=== PATIENT | male | born 1955 | race Hispanic/Latino ===

== ENCOUNTER 2019-11-18 08:52 | Day surgery (SDC) | payer OTHER ==
[2019-11-18 09:03] LABS: Urine Appearance CLEAR; Urine Bilirubin NEGATIVE (NEG); Urine Blood NEGATIVE (NEG); Urine Color YELLOW; Urine Glucose NEGATIVE (NEG); Urine Protein NEGATIVE (NEG); Urine Specific Gravity 1.015 (1.005-1.030); Urine Urobilinogen 0.2 mg/dL (0.2-1.0); Urine pH 5.5 (5.0-7.0)
[2019-11-18 09:07] LABS: Urine Microscopic Reflex NO UMIC
[2019-11-18 09:09] LABS: Basophils % 0.5 % (0-1.3); Hematocrit 45.6 % (39.6-49.0); Lymphocytes % 23.1 % (15.3-44.8); MPV 7.4 fL (7.6-11.3); RBC Red Blood Cell Count 5.45 M/uL (4.33-5.43)
[2019-11-18] MEDS ORDERED: NA CHLORIDE 0.9% 1,000 ML ONE (09:24)
[2019-11-18] MEDS ORDERED: CEFAZOLIN/SWI 1gm 1 GM/10 ML SYR ONE (09:25)
[2019-11-18 09:26] LABS: Potassium 4.4 mmol/L (3.5-5.1)
--- NOTE | 2019-11-18 09:31 | RAD REPORT ---
EXAM DESCRIPTION: RAD - Chest Pa And Lat (2 Views) - 11/18/2019 8:51 am CLINICAL HISTORY: preop Chest pain. COMPARISON: Chest Pa And Lat (2 Views) dated 02/23/2017; ABDOMEN 1 VIEW KUB dated 07/01/2015; ABDOMEN 1 VIEW KUB dated 06/01/2015; ABDOMEN 1 VIEW KUB dated 10/27/2014 FINDINGS: The lungs are mildly emphysematous but clear. The heart is normal in size. No displaced fr actures. Aortic atherosclerosis. IMPRESSION: Mild COPD.
[2019-11-18 09:36] LABS: Protime INR 0.98
[2019-11-18] MEDS ORDERED: propofoL 200 MG/20 ML VIAL IV ONE (10:34)
[2019-11-18] MEDS ORDERED: FENTANYL CITR 100 MCG/2 ML ONE ×2 (10:35→12:03)
[2019-11-18] MEDS ORDERED: LIDOCAINE 2% MPF 5 ML VIAL ONE (10:35)
[2019-11-18] MEDS ORDERED: MIDAZOLAM HCL 2 MG/2 ML INJ ONE (10:35)
[2019-11-18] MEDS ORDERED: ONDANSETRON 4 MG/2 ML VIAL ONE (10:37)
[2019-11-18] MEDS ORDERED: NA CHLORIDE 0.9% 100 ML IV ONE (11:10)
[2019-11-18] MEDS ORDERED: WATER FOR INJ,STERILE 10 ML ONE (11:32)
[2019-11-18] MEDS: LIDOCAINE 1% MPF 30 ML VIAL ONE ×2 (12:14→12:25)
[2019-11-18 13:08] VITALS: O2SAT 96
[2019-11-18 13:35] VITALS: BP 160/71; TEMP 97.3
[2019-11-18] MEDS ORDERED: CODEINE 30MG/APAP 300MG TAB ONE (13:56)
--- NOTE | 2019-11-18 15:55 | EKG ---
Test Date: 2019-11-18 Test Time: 08:26:34 [employer]: RAKEL MEASUREMENT RESULTS: Intervals: Rate: 67 CT: 198 QRSD: 84 QT: 420 QTc: 443 [place]: P: 31 CT: 198 QRS: -21 T: 18 INTERPRETIVE STATEMENTS: Normal sinus rhythm Minimal voltage criteria for LVH, may be normal variant Borderline ECG Compared to ECG 05/27/2015 16:11:20 Left ventricular hypertrophy now present Electronically Signed On 11-18-19 15:51:50 SET OFF PRESS OPERATOR by Malik Leroy
== END 2019-11-18 14:15 | disposition home or self-care (01) ==
LOC: OR 08:52
PROVIDERS: ATTEND Urology
PROC: 0VQSXZZ Repair Penis, External Approach (ICD-10-PCS; principal; 2019-11-18 10:00)
DX: S39.840A Fracture of corpus cavernosum penis, initial encounter (principal); N52.9 Male erectile dysfunction, unspecified; Z83.3 Family history of diabetes mellitus
CPT/HCPCS: 93005; 87088; 85025; 80048; 36415; 85610; 82947; 85730; 81003; 71046; 54440; J2704; J2250; J3010 ×2; J0690; J7030; J2405; 87086

== ENCOUNTER 2022-10-13 08:39 | Emergency (ER) | payer OTHER ==
--- OUTSIDE RECORDS SUMMARY | 2022-10-13 08:42 | XMS REPORT | Continuity of Care Document ---
:1955 Author Organization [facility] t Address [address] [place] [address] Dr. Burks [address] [place] [id number] Care Team Providers Name Role Phone RUBY HE Primary Care Physician Unavailable MARLEN LARSEN Attending Clinician Unavailable Payers Payer Name Policy Type Policy Number Effective Date Expiration Date Nancy goetz [facility] [id number] 2017 00:00:00 [facility] [id number] 2020 [facility] 00:00:00 PPO Problems This patient has no known problems. Allergies, Adverse Reactions, Alerts Allergy Allergy Status Severity Reaction(s) Onset Inactive Treating Comm ents Source Name Type Date Date Clinician NO KNOWN Drug Active [facility] ALLERGIE Class [facility] Medications This patient has no known medications. Procedures This patient has no known procedures. Encounters Start End Encounter Admission Attending Care Care Encounter Source Date/Time Date/Time Type Type Clinicians Facility Department ID 2022-01-24 Outpatient [facility] [id number] Common 15:06:05 [facility] 2020-12-17 2020-12-17 Outpatient R [facility] [id number] Univers 10:20:00 10:20:00 [id number] [facility] 2020-12-17 2020-12-17 Outpatient Olivia LARSEN [facility] [id number] Univers 10:20:00 10:20:00 MARLEN [facility] 2020-12-10 2020-12-10 Outpatient [facility] [id number] Univers 10:20:00 10:20:00 [id number] [facility] 2020-11-19 2020-11-19 Outpatient Olivia LARSEN [facility] [id number] Univers 12:50:00 13:20:11 MARLEN [facility] 2020-11-19 2020-11-19 [facility] [id number] Univers 12:50:00 12:50:00 MARLEN [id number] [facility] Results This patient has no known results.
[2022-10-13] MEDS ORDERED: ACETAMINOPHEN 325 MG TABLET ONE (09:02)
[2022-10-13 09:50] LABS: SARS-COV-2 RT PCR NEGATIVE (NEGATIVE)
--- NOTE | 2022-10-13 09:57 | EDPHYS ---
Physician Documentation [facility] Name: Cholo Delgado Age: 66 yrs Sex: Male : 1955 Arrival Date: 10/13/2022 Time: 08:41 Bed 2 Private MD: ED Physician Jason Fish HPI: 10/13 08:54 This 66 yrs old Male presents to ER via Ambulatory with complaints of Flu jmm Symptoms. 08:54 The patient or guardian reports cough. Onset: The symptoms/episode began/occurred jmm gradually, 2 day(s) ago. Modifying factors: The symptoms are alleviated by nothing. the symptoms are aggravated by nothing. This is a 66 year old male with a history of dm that presents to the ED with complaints of cough, fever, beginning 2 days ago. Denies vomiting, diarrhea, denies chest pain. . Historical: - Allergies: 08:55 No Known Allergies; ss - Immunization history:: Client reports receiving the 2nd dose of the Covid vaccine. - Social history:: Smoking status: Patient denies any tobacco usage or history of. ROS: 08:54 Constitutional: Positive for body aches, fever. jmm 08:54 Respiratory: Positive for cough. 08:54 All other systems are negative. Exam: 08:54 Head/Face: atraumatic. Eyes: EOMI, no conjunctival erythema appreciated ENT: Moist jmm Mucus Membranes Neck: Trachea midline, Supple Chest/axilla: Normal chest wall appearance and motion. Cardiovascular: Regular rate and rhythm. No edema appreciated Respiratory: Normal respirations, no respiratory distress appreciated Abdomen/GI: Non distended Back: Normal ROM Skin: General appearance color normal MS/ Extremity: Moves all extremities, no obvious deformities appreciated, no edema noted to the lower extremities Neuro: Awake and alert Psych: Behavior is normal, Mood is normal, Patient is cooperative and pleasant 08:54 Constitutional: The patient appears in no acute distress, alert, awake. Vital Signs: 08:53 BP 153 / 80; Pulse 95; Resp 16; Temp 102.6(O); Pulse Ox 98% on R/A; Weight 88 kg; ss Height 5 ft. 9 in. (175.26 cm); Pain 5/10; 10:00 BP 141 / 73; Pulse 90; Resp 17; Temp 101; Pulse Ox 96% on R/A; vg1 10:05 Temp 101; vg1 08:53 Body Mass Index 28.65 (88.00 kg, 175.26 cm) MDM: 08:54 Patient medically screened. [facility] 09:55 Data reviewed: vital signs, nurses notes. [facility] 12:16 Counseling: I had a detailed discussion with the patient and/or guardian regarding: the [facility] historical points, exam findings, and any diagnostic results supporting the discharge/admit diagnosis, lab results, the need for outpatient follow up, to return to the emergency department if symptoms worsen or persist or if there are any questions or concerns that arise at home. ED course: Patient is alert and non toxic in appearance in the ED. No signs of resp distress. Patient advised to follow up with pcp and otherwise given strict return precautions. patient understood and agrees with the plan of care. . 10/13 08:54 Order name: COVID-19/FLU A+B; Complete Time: 09:55 [facility] Administered Medications: 09:03 Drug: Acetaminophen 650 mg Route: PO; vg1 10:05 Follow up: Temp 101; Response: Temperature is decreased vg1 Disposition: 17:59 Co-signature as Attending Physician, Jason Fish DO I was immediately available on-site ms3 in the Emergency Department for consultation in the care of the patient. Disposition Summary: 10/13/22 09:56 Discharge Ordered Location: Home [facility] Condition: Stable [facility] Diagnosis - Influenza [facility] Followup: [facility] - With: Private Physician - When: 2 - 3 days - Reason: Recheck today's complaints, Continuance of care, Re-evaluation by your physician Discharge Instructions: - Discharge Summary Sheet [facility] - Influenza, Adult [facility] Forms: - Medication Reconciliation Form [facility] - Thank You Letter [facility] - Antibiotic Education [facility] - Prescription Opioid Use [facility] Prescriptions: - Xofluza 80 mg Oral tablet - take 1 tablet by ORAL route one time; 1 tablet; Refills: 0, Product Selection [facility] Permitted - Tamiflu 75 mg Oral Capsule - take 1 tablet by ORAL route every 12 hours for 5 days; 10 tablet; Refills: 0, [facility] Product Selection Permitted Signatures: Dis[facility] Edilson Egan PA PA jmm Smirch, Shelby, RN RN ss Garcia, Victoria, RN RN vg1 Fish, Jason, DO DO ms3
--- NOTE | 2022-10-13 09:57 | ER ---
Nurse's Notes [facility] Name: Cholo Delgado Age: 66 yrs Sex: Male : 1955 Arrival Date: 10/13/2022 Time: 08:41 Bed 2 Private MD: Diagnosis: Influenza Presentation: 10/13 08:53 Chief complaint: Patient states: Painful cough, nasal congestion and fever that began ss Sunday. Pt reports that his was diagnosed with the flu on Sunday. Coronavirus screen: Client denies travel out of the [place] in the last 14 days. Ebola Screen: Patient denies exposure to infectious person. Patient denies travel to an Ebola-affected area in the 21 days before illness onset. Initial Sepsis Screen: Does the patient meet any 2 criteria? No. Patient's initial sepsis screen is negative. Does the patient have a suspected source of infection? No. Patient's initial sepsis screen is negative. Risk Assessment: Do you want to hurt yourself or someone else? Patient reports no desire to harm self or others. Onset of symptoms was October 11, 2022. 08:53 Method Of Arrival: Ambulatory ss 08:53 Acuity: STEPHANIE 3 ss Historical: - Allergies: 08:55 No Known Allergies; ss - Immunization history:: Client reports receiving the 2nd dose of the Covid vaccine. - Social history:: Smoking status: Patient denies any tobacco usage or history of. Screenin:06 [facility] ED Fall Risk Assessment (Adult) History of falling in the last 3 months, vg1 including since admission No falls in past 3 months (0 pts) Confusion or Disorientation No (0 pts) Intoxicated or Sedated No (0 pts) Impaired Gait No (0 pts) Mobility Assist Device Used No (0 pt) Altered Elimination No (0 pt) Score/Fall Risk Level 0 - 2 = Low Risk Oriented to surroundings, Maintained a safe environment, Educated pt \T\ family on fall prevention, incl call for assistance when getting out of bed, Assessed \T\ reinforced patient's understanding of fall precautions. Abuse screen: Denies threats or abuse. Nutritional screening: No deficits noted. Tuberculosis screening: No symptoms or risk factors identified. Assessment: 09:06 General: Appears in no apparent distress. comfortable, Behavior is calm, cooperative. vg1 Pain: Complains of pain in generalize body Quality of pain is described as aching. Neuro: Level of Consciousness is awake, alert, obeys commands, Oriented to person, place, time, situation. Cardiovascular: Patient's skin is warm and dry. Respiratory: Reports cough that is pain with cough since yesterday Airway is patent Respiratory effort is even, unlabored, Breath sounds are clear. GI: No signs and/or symptoms were reported involving the gastrointestinal system. : No signs and/or symptoms were reported regarding the genitourinary system. EENT: No signs and/or symptoms were reported regarding the EENT system. Derm: Skin is pink, warm \T\ dry. Musculoskeletal: Circulation, motion, and sensation intact. 10:00 Reassessment: Patient appears in no apparent distress at this time. No changes from vg1 previously documented assessment. Patient and/or family updated on plan of care and expected duration. Pain level reassessed. Patient is alert, oriented x 3, equal unlabored respirations, skin warm/dry/pink. Vital Signs: 08:53 BP 153 / 80; Pulse 95; Resp 16; Temp 102.6(O); Pulse Ox 98% on R/A; Weight 88 kg; ss Height 5 ft. 9 in. (175.26 cm); Pain 5/10; 10:00 BP 141 / 73; Pulse 90; Resp 17; Temp 101; Pulse Ox 96% on R/A; vg1 10:05 Temp 101; vg1 08:53 Body Mass Index 28.65 (88.00 kg, 175.26 cm) ED Course: 08:41 Patient arrived in ED. mr 08:43 Edilson Polanco PA is PHCP. jmm 08:44 Jason Fish DO is Attending Physician. [facility] 08:52 Alyssia Valenzuela, MARIO is Primary Nurse. ha1 08:55 Triage completed. ss 08:55 Arm band placed on right wrist. ss 09:06 Patient has correct armband on for positive identification. Bed in low position. Call vg1 light in reach. Side rails up X 1. Pulse ox on. NIBP on. 09:06 COVID-19/FLU A+B Sent. vg1 09:10 Primary Nurse role handed off by Alyssia Valenzuela, MARIO vg1 09:10 Iris Levi, RN is Primary Nurse. vg1 10:02 No provider procedures requiring assistance completed. Patient did not have IV access vg1 during this emergency room visit. Administered Medications: 09:03 Drug: Acetaminophen 650 mg Route: PO; vg1 10:05 Follow up: Temp 101; Response: Temperature is decreased vg1 Medication: 09:06 VIS not applicable for this client. vg1 Outcome: 09:56 Discharge ordered by . bibi 10:02 Discharged to home ambulatory. vg1 10:02 Condition: good 10:02 Discharge instructions given to patient, Instructed on discharge instructions, follow up and referral plans. medication usage, Demonstrated understanding of instructions, follow-up care, medications, Prescriptions given X 1. 10:04 Patient left the ED. vg1 Signatures: Edilson Polanco PA PA jmm Rivera, Mary mr Smirch, Shelby, MARIO RN Iris Panda RN RN vg1 Alyssia Valenzuela RN RN ha1
[2022-10-13 10:15] VITALS: BP 141/73; TEMP 101; O2SAT 96
== END 2022-10-13 10:04 | disposition home or self-care (01) ==
LOC: ER 08:39
DX: J11.1 Influenza due to unidentified influenza virus with other respiratory manifestations (principal); Z20.822 Contact with and (suspected) exposure to COVID-19
CPT/HCPCS: 0240U; 99284